=== PATIENT | male | born 1985 | race Caucasian/White ===

== ENCOUNTER 2020-11-22 09:41 | Emergency (ER) | payer OTHER ==
[2020-11-22] MEDS ORDERED: Bacitracin Oint 1 GM U/D Packet TOP ONE (10:00)
--- NOTE | 2020-11-22 10:18 | EDM.PDOC ---
ED HPI GENERAL MEDICAL PROBLEM - General Chief Complaint: Skin Complaint Stated Complaint: FISHING HOOK IN LT THUMB Time Seen by Provider: 11/22/20 09:55 Source of Information: Reports: Patient, Family History Limitations: Reports: No Limitations - History of Present Illness INITIAL COMMENTS - FREE TEXT/NARRATIVE: 35-year-old male with an embedded leti of the treble hook in his left hand on the dorsal aspect in the webspace between the thumb and index finger. No other complaints or injuries. It has been present for 2 hours. Onset: Sudden Duration: Hour(s): (2 hours ago) Location: Reports: Upper Extremity, Right Associated Symptoms: Reports: No Other Symptoms Left Finger-Thumb Pain Score (Numeric/FACES): 2 - Related Data Allergies Allergy/AdvReac Type Severity Reaction Status Date / Time No Known Allergies Allergy Verified 11/22/20 09:57 Home Meds: Home Meds NK [No Known Home Meds] 11/22/20 [History] Past Medical History - Infectious Disease History Infectious Disease History: Reports: Chicken Pox - Past Surgical History HEENT Surgical History: Reports: Other (See Below) Other HEENT Surgeries/Procedures: tinpanic surgery Social & Family History - Tobacco Use Tobacco Use Status *Q: Never Tobacco User Second Hand Smoke Exposure: No - Caffeine Use Caffeine Use: Reports: Energy Drinks - Alcohol Use Days Per Week of Alcohol Use: 1 Number of Drinks Per Day: 3 Total Drinks Per Week: 3 - Recreational Drug Use Recreational Drug Use: No ED ROS GENERAL - Review of Systems Review Of Systems: See Below Constitutional: Denies: Fever, Chills Respiratory: Denies: Shortness of Breath Cardiovascular: Denies: Chest Pain GI/Abdominal: Denies: Abdominal Pain, Nausea, Vomiting Neurological: Reports: No Symptoms. Denies: Paresthesia ED EXAM, SKIN/RASH Exam: See Below Exam Limited By: No Limitations General Appearance: Alert, No Apparent Distress Respiratory/Chest: No Respiratory Distress Extremities: Other (Exam is otherwise limited to the left hand. Patient has a single leti of a treble hook embedded into the soft tissue dorsal aspect of the hand between thumb and index finger) Neurological: Alert, Oriented Psychiatric: Normal Affect, Normal Mood Course - Vital Signs Last Recorded V/S: Last Vital Signs Temp 97.6 F 11/22/20 10:02 Pulse 74 11/22/20 10:02 Resp 16 11/22/20 10:02 BP 148/84 H 11/22/20 10:02 Pulse Ox 99 11/22/20 10:02 - Orders/Labs/Meds Meds: Medications Discontinued Medications Generic Name Dose Route Start Last Admin Trade Name Jammie PRN Reason Stop Dose Admin Bacitracin 1 dose 11/22/20 10:00 11/22/20 10:05 Bacitracin Oint 1 Gm U/D Packet TOP 11/22/20 10:01 1 dose ONETIME ONE Administration Lidocaine HCl 5 ml 11/22/20 10:00 11/22/20 10:05 Lidocaine 1% 5 Ml Sdv INJECT 11/22/20 10:01 5 ml ONETIME ONE Administration - Re-Assessments/Exams Free Text/Narrative Re-Assessment/Exam: 11/22/20 10:22 A small amount of lidocaine was infiltrated into the area after sterilization with alcohol. Countertraction with a needle luz was applied and the needle removed without difficulty. A small amount of bacitracin was applied and a Band-Aid, patient will keep wound clean while healing. Departure - Departure Time of Disposition: 10:25 Disposition: Home, Self-Care 01 Clinical Impression: Foreign body hand Qualifiers: Encounter type: initial encounter Laterality: left Qualified Code(s): S60.552A - Superficial foreign body of left hand, initial encounter - Discharge Information Instructions: Hand or Foot Foreign Body, Adult Referrals: PCP,None [Primary Care Provider] - Forms: ED Department Discharge Care Plan Goals: Keep wound covered and clean while healing, recheck if concerns of infection or not healing satisfactorily. Sepsis Event Note (ED) - Evaluation Sepsis Screening Result: No Definite Risk - Focused Exam Vital Signs: Vital Signs Temp Pulse Resp BP Pulse Ox 11/22/20 10:02 97.6 F 74 16 148/84 H 99 11/22/20 09:55 97.6 F 74 16 148/84 H 99
== END 2020-11-22 10:25 | disposition home or self-care (01) ==
LOC: JP.ED 09:41
DX: S60.552A Superficial foreign body of left hand, initial encounter (principal); W45.8XXA Other foreign body or object entering through skin, initial encounter
CPT/HCPCS: 99283